=== PATIENT | male | born 1945 | race African-American/Black ===

== ENCOUNTER 2017-09-13 20:05 | Emergency (ER) | payer OTHER ==
[~2017-09-13] VITALS: Ht 182.9 cm; Wt 79.4 kg
--- NOTE | ~2017-09-13 | EKG ---
[address] [place] [address] ELECTROCARDIOGRAM REPORT Name: FABIOLA PRUETT Room #: DEP [facility] CAMPUSCarmencita#: [id number] Admission: 09/13/17 Attend Phys: Discharge: 09/14/17 Date of : 47 Report #: [id number] THIS REPORT FOR: //name// 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
[2017-09-13 21:45] LABS: ABSOLUTE NEUTROPHILS 8.7 thou/uL (1.4-8.2); BASOPHILS 0.6 % (0.0-2.0); EOSINOPHILS 2.7 % (0.0-3.0); HEMATOCRIT 38.8 % (42.0-52.0); LYMPHOCYTES 19.8 % (24.0-44.0); MCHC 33.5 g/dL (28.0-37.0); MCV 86.4 fL (80.0-100.0); MONOCYTES 5.4 % (1.0-8.0); PLATELET COUNT 227 thou/uL (150-400); POLYS 71.5 % (36.0-66.0); RBC 4.49 mil/uL (4.50-6.00); RDW 14.2 % (10.5-14.5); WBC 12.1 thou/uL (4.0-11.0)
[2017-09-13 22:00] LABS: ANION GAP 9 mmol/L (7-16); BUN 14 mg/dL (7-18); CALCIUM 8.8 mg/dL (8.5-10.1); CHLORIDE 105 mmol/L (98-107); CO2 26 mmol/L (21-32); CREATININE 1.9 mg/dL (0.7-1.3); GLUCOSE 110 mg/dL (74-106); POTASSIUM 3.9 mmol/L (3.5-5.1); SODIUM 140 mmol/L (136-145)
[2017-09-13 22:04] LABS: ALBUMIN 3.8 g/dL (3.4-5.0); SGOT 14 U/L (15-37); SGPT 16 U/L (30-65); TOTAL BILIRUBIN 0.2 mg/dL (<0.1-1.0); TOTAL PROTEIN 7.8 g/dL (6.4-8.2); TROPONIN-I <0.06 ng/mL (<0.06)
[2017-09-13 22:27] LABS: URINE BILIRUBIN NEGATIVE (Negative); URINE BLOOD NEGATIVE (Negative); URINE CLARITY CLEAR; URINE COLOR YELLOW; URINE GLUCOSE-RANDOM* NEGATIVE (Negative); URINE KETONES NEGATIVE (Negative); URINE LEUKOCYTES NEGATIVE (Negative); URINE NITRITE NEGATIVE (Negative); URINE PROTEIN (DIPSTICK) NEGATIVE (Negative); URINE UROBILINOGEN 0.2 E.U./dl (0.2-1.0)
[2017-09-14 00:21] VITALS: BP 127/80
== END 2017-09-14 00:21 | disposition left against medical advice (07) ==
LOC: ER 20:05
PROVIDERS: Physician Assistant
DX: R55 Syncope and collapse (principal); J45.909 Unspecified asthma, uncomplicated